=== PATIENT | male | born 1980 | race Caucasian/White ===

== ENCOUNTER 2020-09-07 07:43 | Day surgery (SDC) | payer BC ==
[2020-09-03 15:17] VITALS: BMI 33.0
[2020-09-07] MEDS ORDERED: Isoproterenol 0.2 MG/1 ML AMP ONE (07:58)
[2020-09-07] MEDS ORDERED: Lidocaine 1% (PF) 30 ML VIAL ONE (07:58)
[2020-09-07] MEDS ORDERED: Heparin 10,000 UNITS/ 10 ML VIAL ONE (07:58)
[2020-09-07] MEDS ORDERED: Heparin 25,000 units/D5W 500 ML ONE (08:00)
[2020-09-07] MEDS ORDERED: Midazolam HCl 2 mg/2 ml Vial ONE (09:14)
[2020-09-07] MEDS ORDERED: Fentanyl 100 MCG/2 ML VIAL ONE ×2 (09:14→10:55)
[2020-09-07] MEDS ORDERED: PROPOFOL 200 MG/20 ML VIAL ONE (09:46)
[2020-09-07] MEDS ORDERED: Ondansetron PF 4 MG/2 ML Vial ONE (09:46)
[2020-09-07] MEDS ORDERED: Dexamethasone 20 MG/5 ML VIAL ONE (09:46)
[2020-09-07] MEDS ORDERED: Glycopyrrolate 0.2 MG/ML 5 ML SYRINGE ONE (09:46)
[2020-09-07] MEDS ORDERED: Rocuronium Bromide 10 MG/ML (10ML VIAL) ONE (09:46)
[2020-09-07] MEDS ORDERED: Protamine Sulfate 50 MG/5 ML VIAL ONE (12:17)
[2020-09-07] MEDS ORDERED: HYDROcodone/Acetaminophen 5/325 mg Tablet ONE (17:14)
[2020-09-07] MEDS ORDERED: HYDROcodone/Acetaminophen 5/325 mg Tablet PO PRN ×2 (17:30)
== END 2020-09-07 17:30 | disposition home or self-care (01) ==
LOC: CCL 07:43
PROVIDERS: ATTEND Internal Medicine Cardiovascular Disease
PROC: 02K83ZZ Map Conduction Mechanism, Percutaneous Approach (ICD-10-PCS; principal; 2020-09-07)
PROC: 02583ZZ Destruction of Conduction Mechanism, Percutaneous Approach (ICD-10-PCS; principal; 2020-09-07)
PROC: 4A023FZ Measurement of Cardiac Rhythm, Percutaneous Approach (ICD-10-PCS; principal; 2020-09-07)
PROC: 4A0234Z Measurement of Cardiac Electrical Activity, Percutaneous Approach (ICD-10-PCS; principal; 2020-09-07)
DX: I48.0 Paroxysmal atrial fibrillation (principal); Z79.01 Long term (current) use of anticoagulants; Z79.899 Other long term (current) drug therapy; Z88.1 Allergy status to other antibiotic agents
CPT/HCPCS: 76942; 85347; 93005; 93312; 93613; 93622; 93656; 93657; 93662; C1730; C1732; C1759; C1894; J1100; J1644; J2001; J2250; J2405; J2704; J2720; J3010

== ENCOUNTER 2021-01-25 09:14 | Day surgery (SDC) | payer BC ==
[2021-01-24 15:10] VITALS: BMI 30.3
[2021-01-25] MEDS ORDERED: Heparin 25,000 units/D5W 500 ML ONE ×2 (09:26→09:42)
[2021-01-25] MEDS ORDERED: Heparin 10,000 UNITS/ 10 ML VIAL ONE ×2 (09:26→10:45)
[2021-01-25] MEDS ORDERED: Succinylcholine 200 MG/10 ml SYRINGE FS ONE (10:22)
[2021-01-25] MEDS ORDERED: Dexamethasone 20 MG/5 ML VIAL ONE (10:22)
[2021-01-25] MEDS ORDERED: PROPOFOL 200 MG/20 ML VIAL ONE (10:22)
[2021-01-25] MEDS ORDERED: Ondansetron PF 4 MG/2 ML Vial ONE (10:22)
[2021-01-25] MEDS ORDERED: Fentanyl 100 MCG/2 ML VIAL ONE (10:22)
[2021-01-25] MEDS ORDERED: Rocuronium Bromide 10 MG/ML (10ML VIAL) ONE (10:22)
[2021-01-25] MEDS ORDERED: Glycopyrrolate 0.2 MG/ML 5 ML SYRINGE ONE (10:22)
[2021-01-25] MEDS ORDERED: Lidocaine 1% PF 5 ML VIAL ONE (10:22)
[2021-01-25] MEDS ORDERED: Isoproterenol 0.2 MG/1 ML AMP ONE (12:11)
[2021-01-25] MEDS ORDERED: Protamine Sulfate 50 MG/5 ML VIAL ONE (12:48)
[2021-01-25] MEDS ORDERED: HYDROcodone/Acetaminophen 5/325 mg Tablet ONE (17:09)
[2021-01-25] MEDS ORDERED: Acetaminophen 500 MG TAB ONE (17:39)
[2021-01-25] MEDS ORDERED: Acetaminophen 500 MG TAB PO SCH (18:00)
[2021-01-25] MEDS ORDERED: HYDROcodone/Acetaminophen 5/325 mg Tablet PO PRN ×2 (18:00)
== END 2021-01-25 17:50 | disposition home or self-care (01) ==
LOC: CCL 09:14
PROVIDERS: ATTEND Internal Medicine Cardiovascular Disease
PROC: B245ZZ4 Ultrasonography of Left Heart, Transesophageal (ICD-10-PCS; principal; 2021-01-25)
PROC: 02K83ZZ Map Conduction Mechanism, Percutaneous Approach (ICD-10-PCS; principal; 2021-01-25)
DX: I48.0 Paroxysmal atrial fibrillation (principal); Z88.1 Allergy status to other antibiotic agents; Z79.01 Long term (current) use of anticoagulants; Z79.899 Other long term (current) drug therapy; Z98.890 Other specified postprocedural states
CPT/HCPCS: 76942; 85347; 92960; 93005; 93312; 93613; 93623; 93655; 93656; 93657; 93662; C1731; C1732; C1759; C1894; C2630; J1100; J1644; J2405; J2704; J2720; J3010